=== PATIENT | female | born 1970 | race Caucasian/White ===

== ENCOUNTER 2022-04-28 13:33 | Outpatient (CLI) | payer BC | END 2022-04-28 13:34 | disposition home or self-care (01) | LOC: CSHMAMMO 13:33 | PROVIDERS: ATTEND Family Medicine | DX: Z12.31 Encounter for screening mammogram for malignant neoplasm of breast (principal) | CPT/HCPCS: 77063; 77067 ==

== ENCOUNTER 2024-05-19 14:00 | Outpatient (CLI) | payer BC | END 2024-05-19 14:01 | disposition home or self-care (01) | LOC: CSHMAMMO 14:00 | PROVIDERS: ATTEND Family Medicine | DX: Z12.31 Encounter for screening mammogram for malignant neoplasm of breast (principal) | CPT/HCPCS: 77063; 77067 ==